=== PATIENT | male | born 2005 ===

== ENCOUNTER 2024-09-10 10:15 | Emergency (ER) | payer BC, OTHER, SELFPAY ==
[2024-09-10 10:30] VITALS: BP 110/72
[2024-09-10 10:57] VITALS: BMI 18.9
--- NOTE | 2024-09-10 11:46 | ED.GENMED ---
Addendum entered and electronically signed by Katarzyna Nunez NP 09/10/24 17:32:
Pt insurance requires pre auth for Ciprofloxacin-dexamethasone ear drops and her pharmacy is now closed. Rx for Cortisporin 3 drops affected ear QID called in to [facility] pharmacy which is open now and most likely does not need pre auth
Original Note:
History of Present Illness
General
Chief Complaint: Foreign Body Removal
Time Seen by Provider: 09/10/24 11:41
History of Present Illness
History of Present Illness:
TIME OF INITIAL ENCOUNTER: 11:45 AM
HPI:
The patient comes in because there was a tissue stuck in the ear and urgent care recommended he come into the emergency department for further evaluation.
EXAM:
GENERAL: Well appearing in no distress
HEENT: Moist oral mucosa
NEUROLOGIC: Excellent strength all extremities, no obvious coordination deficits
PSYCHIATRIC: Consistent with some mild autism and appears anxious at times
EXTREMITIES: Nontender, no edema, moves all extremities equally
SKIN: No rash, no lesions
NUMBER AND COMPLEXITY OF PROBLEMS ADDRESSED AT THE ENCOUNTER
� Chronic conditions affecting care: Autism, anxiety, OCD
� Acute Exacerbation and/or Progression of Chronic Illness: This is an acute problem
� Differential Diagnosis includes: Otitis media, otitis externa, TM rupture, retained foreign body
AMOUNT AND/OR COMPLEXITY OF DATA TO BE REVIEWED AND ANALYZED
� I performed an independent evaluation of and my interpretation is:
EKG:
CT:
X-rays:
Laboratory Studies:
Other:
� Review of other/old records: I reviewed records, the patient was admitted with hypocalcemia/seizures in 2021
� Clinical information was obtained by an independent historian: I spoke to mother at bedside
� Prescriptions/Medications Considered but not given:
� Further testing considered but not performed:
RISK OF COMPLICATIONS AND/OR MORBIDITY OR MORTALITY OF PATIENT MANAGEMENT
� Social determinants of health affecting care: Lives at home
� Discussion with other providers: I discussed case with Dr. Guevara who recommended quinolone drops which I prescribed and sent to pharmacy
� Escalation of care including admission/observation vs risk of discharge considered: I did irrigate the affected area multiple times and attempted to use forceps to remove what may have been either Kleenex. However the
appearance of the area of concern appears somewhat more like regular skin tissue�therefore I discussed with Dr. Guevara and patient is to follow-up with ENT as an outpatient.
ANY OTHER UPDATES:
Past History
Past History
ED Past Medical History: Other
ED Past Surgical History: None
Phy Exam
Physical Exam
Physical Exam:
See HPI
Course
Orders/Labs/Results
Orders:
Orders
09/10/24 12:21
Ciprofloxacin HCl [Cipro] 2 dropperett RIGHT EAR NOW STA
Vital Signs
Initial and Last Documented VS:
Initial Vital Signs
Temp Pulse Resp BP Pulse Ox
36.7 C 74 16 110/72 97
09/10/24 10:30 09/10/24 10:30 09/10/24 10:30 09/10/24 10:30 09/10/24 10:30
Last Documented Vital Signs
Temp Pulse Resp BP Pulse Ox
36.7 C 74 16 110/72 97
09/10/24 10:30 09/10/24 10:30 09/10/24 10:30 09/10/24 10:30 09/10/24 10:30
Procedures
Foreign Body Removal-Ear
Right:
Tenderness: none
Any local drainage: none
External ear canal cleaned with removal of cerumen using: irrigation
Removal of foreign body using: irrigation and simple forceps
Additional Information:
Only minimal amount of tissue removed
*Critical Care Note
Total Time (30-74mins, 75-104mins- exclusive of procedures): Not Applicable
ED Attending Note
-
Portions of this chart may have been created with voice recognition software.� Occasional wrong word or��sound alike� substitutions may have occurred due to the inherent limitations of voice recognition software.
Discharge Plan
Departure
Patient Disposition: Home (Routine Discharge)
Date of Disposition: 09/10/24
Time of Disposition: 12:23
Patient with high blood pressure during this ER visit?: Yes
Discharge Problem:
Bleeding from right ear
Prescriptions:
New
ciprofloxacin-dexamethasone 0.3-0.1 % drops,suspension
4 drp otic (ear) BID Qty: 7.5 0RF
No Action
hydrocortisone 1 % Cream
0 applic TOPICAL DAILYPRN PRN (Reason: eczema flare up)
Immune Support Herbal
1 tab PO DAILY
Patient Comments:
07/03/22: Per pt's parents, he takes an immune support herbal supplement from [employer] (parents unable to tell me the name of the herbal supplement)
cyanocobalamin (vitamin B-12) 1,000 mcg/mL Solution
1,000 mcg IM DAILY Qty: 300 0RF
calcitriol 0.25 mcg Capsule
0.5 mcg PO DAILY Qty: 90 0RF
multivitamin with folic acid [Tab-A-Sis] 400 mcg Tablet
1 tab PO DAILY Qty: 30 0RF
ergocalciferol (vitamin D2) 1,250 mcg (50,000 unit) Capsule
50,000 unit PO WEEKLY Qty: 8 0RF
Rx Instructions:
DAILY FOR at least 7-10 days total, followed by WEEKLY FOR 8 WEEKS
calcium carbonate [Oyster Shell Calcium 500] 500 mg calcium (1,250 mg) Tablet
500 mg PO BID Qty: 60 0RF
Referrals:
Tevin Soliz MD [Family Provider] -
David Guevara MD [Active] - Next open appointment
Activity Restrictions/Additional Instructions:
I irrigated the right ear canal and attempted to remove what I saw with forceps. I removed some of the area of concern. I then spoke to Dr. Arboleda who recommended that we place you on antibiotic eardrops 4 drops twice daily. Call the office for
an appointment within the next few days�[phone].
Interventions
Interventions:
*Risk Screen - Suicide Last Done: 09/10/24 11:01
*General Assessment Last Done: 09/10/24 11:01
*Neglect/Abuse Screening Last Done: 09/10/24 11:01
ED- Fall Risk Assessment Last Done: 09/10/24 10:58
*ED COVID-19 Vaccine History Last Done: 09/10/24 10:58
*Nursing Disposition Last Done: 09/10/24 12:40
Discharge Date and Time
Discharge Date/Time: 09/10/24 12:42
Print Language: BENINESE
[2024-09-10] MEDS: CIPRO 2 DROPPERETT RIGHT EAR (12:32)
== END 2024-09-10 12:42 | disposition home or self-care (01) ==
LOC: EMR 10:15
PROVIDERS: EMERGENCY PHYSICIAN Emergency Medicine; FAMILY PHYSICIAN Family Medicine
DX: T16.1XXA Foreign body in right ear, initial encounter (principal); W44.8XXA Other foreign body entering into or through a natural orifice, initial encounter; H92.21 Otorrhagia, right ear
CPT/HCPCS: 69200; 99282